=== PATIENT | male | born 1960 | race Caucasian/White ===

== ENCOUNTER 2025-01-28 11:38 | Outpatient (CLI) | payer BC | END 2025-01-28 11:39 | disposition home or self-care (01) | LOC: SCSRAD 11:38 | PROVIDERS: ATTEND Orthopaedic Surgery | DX: M46.1 Sacroiliitis, not elsewhere classified (principal); M25.552 Pain in left hip; M16.0 Bilateral primary osteoarthritis of hip | CPT/HCPCS: 72190 ==